=== PATIENT | female | born 1935 | race Caucasian/White ===

== ENCOUNTER 2016-08-09 13:31 | Observation (INO) | payer MEDICARE, BC ==
--- NOTE | ~2016-08-09 | DS ---
Unit #: [id number] #: [id number] Patient: MARS DAVENPORT [id number] [address] [place], [place] [address] [id number] I MR#: [id number] NAME: MARS DAVENPORT. ROOM: 337 Age: 80 Sex: F Admission Date: 08/09/2016 : 1935 Discharge Date: 08/12/2016 Attending Physician: Low Rodriguez M.D. Primary Care Physician: Low Rodriguez M.D. DISCHARGE SUMMARY PRINCIPAL DISCHARGE DIAGNOSES 1. Micturition syncope. 2. Rhabdomyolysis. 3. History of frequent premature ventricular complexes, symptomatic. 4. Hyperlipidemia, intolerant to treatment. 5. History of diverticulosis. 6. History of hiatal hernia and gastritis. 7. Hypertension. PROCEDURES None. CONSULTANTS Dr. Bal. REASON FOR HOSPITALIZATION The patient is an 80-year-old white female with history of hiatal hernia, gastritis, hypertension, hyperlipidemia, frequent PVCs and diverticulosis. She was having a large bowel movement when she became diaphoretic and lightheaded, passed out, complaining of neck and back pain, was sent to the emergency room per EMS. She essentially had a negative workup except her (1) CPK level was 1,962. She was seen by cardiology. Her Lopressor was decreased to a half twice a day. Orthostatic blood pressure and heart rate was ordered, and the patient was admitted. HOSPITAL COURSE The patient had a urinalysis for further evaluation of the rhabdomyolysis obviously looking for evidence of myoglobinuria. Her urinalysis was within normal limits. For whatever reason, a urine culture was sent and was negative. She was placed on IV fluids with sodium bicarb. Her CPK levels and electrolytes were followed. Labs in the ER showed a normal CBC. Random blood sugar was normal at 114. CMP was normal except for random blood sugar of 130 and an AST of 47, obviously related to the muscle injury. INR was within normal limits at 1. Cardiac enzymes were within normal limits except for the elevated CK-MB. Followup troponins were normal. Chest x-ray showed likely underlying chronic interstitial lung disease but no acute abnormalities. Two views of the pelvis showed no fracture or dislocation. Three views of the thoracic spine showed demineralized bone, exaggerated thoracic kyphosis but no acute fracture or misalignment. Lipid profile showed total cholesterol of 241, an LDL of 157, triglycerides of 95 and an HDL of 65. TSH was within normal limits. CPK fell as expected. This morning her CPK level is 300. Her potassium was low yesterday and replaced per protocol; it is currently 3.7. Magnesium is 1.8. The rest of her BMP is normal. Her CBC is normal this Unit #: [id number] #: [id number] Patient: MARS DAVENPORT A morning except for a hemoglobin of 10.5, which is probably secondary to dilution. She is currently asymptomatic and being discharged home. DISCHARGE MEDICATIONS 1. Metoprolol tartrate 25 mg 1/2 p.o. b.i.d. 2. Vitamin D 2,000 units p.o. daily. FOLLOW-UP She will follow up in the office in 1 week. Dictated by... Low Rodriguez M.D. CHRISTIE/eris TD: 08/13/2016 11:49 JOB #: [id number] DISCHARGE SUMMARY X Low Rodriguez MD X DISCHARGE SUMMARY
--- NOTE | ~2016-08-09 | CR206 ---
[facility] A Service of [facility] & [facility] RADIOLOGY TEXT RESULTS PATIENT: MARS DAVENPORT LOCATION: CEDOF 25060-11 : 33 UNIT #: [id number] AGE: [address]: Low Rodriguez MD SEX: F ORDER DR: [id number] [facility] [address] [place], [place] [address] [id number] MR#: [id number] Acc #: [id number] NAME: MARS DAVENPORT. : 1935 SEX: F STUDY DATE/TIME: 08/09/2016 12:25 UNIT: CEDOF ROOM: 25204 STUDY DESCRIPTION: CR Pelvis 1 or 2 Views Attending Physician: Low Rodriguez M.D. Ordering Physician: Aelxei Osorio M.D. Primary Care Physician: Low Rodriguez M.D. MEDICAL IMAGING REPORT This report is preliminary unless electronic signature is present EXAM Pelvis 1 or 2 views HISTORY Pain in the pelvic area, mid-back pain, syncope today. COMMENT Frontal view of the pelvis is reviewed. The bones are demineralized. No prior pelvic film. No acute fracture, dislocation, or radiopaque foreign body appreciated. Lower sacrum is obscured by overlying bowel gas. IMPRESSION Bones demineralized. No acute fracture dislocation appreciated pelvis. Lower sacrum is obscured by overlying bowel gas. Dictated by... Elis Reyna M.D. THIS IS AN ELECTRONICALLY VERIFIED REPORT Elis Reyna M.D. at 08/10/2016 6:20 AM JOLIE/reshma TD: 08/10/2016 03:54 JOB #: [id number] MEDICAL IMAGING REPORT COPY
--- NOTE | ~2016-08-09 | HP ---
Unit #: [id number] #: [id number] Patient: MARS DAVENPORT [id number] [facility]. [place], [place] [address] [id number] I MR#: [id number] NAME: MARS DAVENPORT. ROOM: 16532 Age: 80 Sex: F Admission Date: 08/09/2016 : 1935 Attending Physician: Low Rodriguez M.D. Primary Care Physician: Low Rodriguez M.D. HISTORY AND PHYSICAL Ms. Davenport is a 80-year-old female with a history of hiatal hernia, gastritis, hypertension, hyperlipidemia, frequent PVCs, chronic weakness likely (1) diverticulosis, was in her usual state of health yesterday when she was having a large bowel movement. Soon thereafter she became diaphoretic, lightheaded, and found herself on the floor complaining of neck pain and upper back pain. Had no chest pain, shortness of air, or any other symptoms. Has had no fever, cough, shortness of air, change in bowel or bladder habits of recent times. In the emergency room she was evaluated and essentially had a negative workup, although her total CPK was elevated to 1962 and was never notified of this until I found it in the computer this morning. In any case, she has been seen by cardiology (2) her blood pressure medications that she is on at home, which are Lopressor 25 mg b.i.d., which I have cutdown by half b.i.d. Her blood pressure was elevated most of the day yesterday but suddenly this morning it is 87/57, being addressed with IV fluids and holding her Lopressor. Currently she is lying in the emergency room on the stretcher in no acute distress. Daughter is at the bedside during the history and physical examination. ALLERGIES She has stated allergies to antihistamines, Zithromax, as well as codeine, epinephrine and Phenergan. MEDICATIONS PRIOR TO ADMISSION Metoprolol tartrate 25 mg b.i.d.; vitamin D 2,000 units daily. PAST SURGICAL HISTORY The patient has had a femoral artery repaired, cardiac cath, tubal ligation, tonsillectomy. PAST MEDICAL HISTORY Frequent PVCs, hypertension, hyperlipidemia, hiatal hernia, gastritis, diverticulosis. She had a prior negative Cardiolite 11/29/2012. Echo 11/29/2012 showed a normal EF with mild mitral regurgitation and aortic insufficiency. SOCIAL HISTORY She is , nonsmoker, and nondrinker. No street drug use. FAMILY HISTORY Noncontributory. PHYSICAL EXAMINATION Unit #: [id number] #: [id number] Patient: MARS DAVENPORT GENERAL: She is awake, alert and oriented x3 in no acute distress. VITAL SIGNS: Afebrile, pulse 99, respirations 16, blood pressure 87/57, O2 sats 99% on room air. HEENT: Unremarkable. NECK: Supple without JVD, bruits, adenopathy, or thyromegaly. CHEST: Clear to auscultation. HEART: Regular rate and rhythm without any murmurs, rubs or gallops. ABDOMEN: Soft, nondistended and nontender with positive bowel sounds and no hepatosplenomegaly. EXTREMITIES: No clubbing, cyanosis or edema. /RECTAL: Deferred. NEUROLOGIC: Grossly intact. DIAGNOSTIC STUDIES LAB VALUES: CBC normal x2. CMV normal except for a random blood sugar of 130 and an AST of 47. PT INR is 1.0, CK-MB was 70.2, troponin normal x3, CK total 1962. Total cholesterol 241, LDL 157, TSH within normal limits. IMAGING STUDIES: CT scan of the head - no active disease. CT scan of the C-spine - no active disease. Chest x-ray - no active disease. Chronic interstitial lung disease. Pelvis - osteopenia, no fracture or dislocation. T-spine - osteopenia, kyphosis, no fracture or misalignment. CARDIOLOGY STUDIES: EKG - sinus rhythm, first degree AV block, right bundle branch block. IMPRESSION 1. Micturition syncope. 2. Rhabdomyolysis. 3. Hypotension. 4. History of hypertension. 5. History of frequent PVCs. 6. History of hiatal hernia and gastritis. 7. History of diverticular disease. 8. Hyperlipidemia, intolerant of treatment of the past. PLAN Urinalysis to check for blood and other etiologies. Repeat CPK now and in the morning. Hold Lopressor for systolics less than 100. Again cardiology has been consulted and already seen the patient. She will be started on IV fluids with half normal saline with 1 1/2 amps of sodium bicarb at 150 mL an hour, watching closely for volume overload and repeated her CPK in the morning. Dictated by Charlotte Lance/jud TD: 08/10/2016 11:00 JOB #: [id number] Unit #: [id number] #: [id number] Patient: MARS DAVENPORT A HISTORY AND PHYSICAL X oLw Rodriguez MD X HISTORY AND PHYSICAL
--- NOTE | ~2016-08-09 | EKG ---
PATIENT: MARS DAVENPORT UNIT #: [id number] Ventricular Rate: 90 BPM Atrial Rate: 90 BPM P-R Interval: 212 ms QRS Duration: 114 ms Q-T Interval: 392 ms QTC Calculation(Bezet): 479 ms P [place]: 39 degrees Calculated R [place]: -28 degrees Calculated T [place]: 1 degrees Diagnosis Line: Sinus rhythm with 1st degree A-V block Diagnosis Line: Right bundle branch block Diagnosis Line: Abnormal ECG Diagnosis Line: When compared with ECG of 06-NOV-2015 12:30, Diagnosis Line: ST now depressed in Anterolateral leads Diagnosis Line: T wave inversion now evident in Anterior leads Diagnosis Line: Confirmed by HENRIQUE WEBB MD ([id number]) on Diagnosis Line: 08/12/2016 4:00:28 PM INTERPRETING MD: JON NAJERA
--- NOTE | ~2016-08-09 | CR72 ---
[facility] A Service of [facility] & [facility] RADIOLOGY TEXT RESULTS PATIENT: MARS DAVENPORT LOCATION: CEDOF [address]6769-53 : 33 UNIT #: [id number] AGE: [address]: Low Rodriguez MD SEX: F ORDER DR: [id number] [facility] [address] [place], [place] [address] [id number] I MR#: [id number] Acc #: [id number] NAME: MARS DAVENPORT. : 1935 SEX: F STUDY DATE/TIME: 08/09/2016 12:20 UNIT: CEDOF ROOM: 77603 STUDY DESCRIPTION: CR Chest Single View Portable Attending Physician: Low Rodriguez M.D. Ordering Physician: Alexei Osorio M.D. Primary Care Physician: Low Rodriguez M.D. MEDICAL IMAGING REPORT This report is preliminary unless electronic signature is present EXAM Chest x-ray portable HISTORY Syncope, pain in pelvic area mid back pain, syncope starting today. History of mitral valve prolapse and cardiac cath. COMMENTS Single frontal portable view of the chest timed 12:20 08/09/2016 reviewed. Comparison 11/06/2015. There is top normal heart size. There is underlying chronic interstitial lung disease. There is no acute infiltrate acute congestive failure, pleural effusion or pneumothorax suspected. Calcification noted at the aortic knob. IMPRESSION 1. Likely underlying chronic interstitial lung disease but no acute abnormality is appreciated. Dictated by... Elis Reyna M.D. THIS IS AN ELECTRONICALLY VERIFIED REPORT Elis Reyna M.D. at 08/10/2016 6:20 AM JOLIE/reshma TD: 08/10/2016 03:51 JOB #: [id number] MEDICAL IMAGING REPORT COPY
--- NOTE | ~2016-08-09 | CT71 ---
[facility] A Service [facility] [place] [place]IOLOGY TEXT RESULTS PATIENT: MARS DAVENPORT LOCATION: CEDOF : 33 UNIT #: [id number] AGE: [address]: Low Rodriguez MD SEX: F ORDER DR: [id number] [facility] [address] [place], [place] [address] [id number] I MR#: [id number] Acc #: [id number] NAME: MARS DAVENPORT. : 1935 SEX: F STUDY DATE/TIME: 08/09/2016 12:44 UNIT: CEDOF ROOM: 96568 STUDY DESCRIPTION: CT Head Wo Contrast Attending Physician: Low Rodriguez M.D. Ordering Physician: Alexei Osorio M.D. Primary Care Physician: Low Rodriguez M.D. MEDICAL IMAGING REPORT This report is preliminary unless electronic signature is present EXAM CT brain without contrast HISTORY Syncope today. TECHNIQUE This CT exam was performed with one or more of the following radiation dose reduction techniques: automatic control, adjustment of mA and/or kV according to patient size, and iterative reconstruction. FINDINGS CT brain without contrast demonstrates no intracranial hemorrhage, mass or edema. No midline shift or ventricular dilatation. No extraaxial fluid collection. Mild chronic ischemic changes in the periventricular white matter bilaterally. IMPRESSION No acute findings. Minimal chronic ischemic changes in the deep white matter bilaterally. Dictated by... Chucho Reynolds M.D. THIS IS AN ELECTRONICALLY VERIFIED REPORT Chucho Reynolds M.D. at 08/10/2016 1:52 PM DFL/rnr TD: 08/10/2016 04:28 JOB #: [id number] MEDICAL IMAGING REPORT [facility] A [facility] RADIOLOGY TEXT RESULTS PATIENT: MARS DAVENPORT LOCATION: CEDOF : 33 UNIT #: [id number] AGE: [address]: Low Rodriguez MD SEX: F ORDER DR: COPY
--- NOTE | ~2016-08-09 | CR243 ---
[facility] A Service of [facility] & [facility] RADIOLOGY TEXT RESULTS PATIENT: MARS DAVENPORT LOCATION: CEDOF [address]-72 : 33 UNIT #: [id number] AGE: [address]: Low Rodriguez MD SEX: F ORDER DR: [id number] [facility] [address] [place], [place] [address] [id number] I MR#: [id number] Acc #: [id number] NAME: MARS DAVENPORT. : 1935 SEX: F STUDY DATE/TIME: 08/09/2016 12:27 UNIT: CEDOF ROOM: 70676 STUDY DESCRIPTION: CR Thoracic Spine 3 Views Attending Physician: Low Rodriguez M.D. Ordering Physician: Alexei Osorio M.D. Primary Care Physician: Low Rodriguez M.D. MEDICAL IMAGING REPORT This report is preliminary unless electronic signature is present EXAM Thoracic spine series HISTORY Pain in mid back syncope today. COMMENT AP lateral and swimmers views of the thoracic spine are reviewed. There is a two-view chest for comparison from 2011. The bones are demineralized. There is dextroconvex scoliosis seen in the upper lumbar spine. There is exaggeration of thoracic kyphosis. Mild multiple level anterior endplate spondylosis. No acute fracture or destructive process is suspected. Partly seen are cervical degenerative changes. IMPRESSION Bones are demineralized and there is mild exaggeration of thoracic kyphosis with some anterior endplate spondylosis but there is no acute fracture or traumatic malalignment suspected. Partly seen is dextroconvex upper lumbar scoliosis and degenerative change in the cervical spine. Dictated by... Elis Reyna M.D. THIS IS AN ELECTRONICALLY VERIFIED REPORT Elis Reyna M.D. at 08/10/2016 6:20 AM JOLIE/rnmary TD: 08/10/2016 03:59 JOB #: [id number] MEDICAL IMAGING REPORT COPY
--- NOTE | ~2016-08-09 | CT52 ---
[facility] A Service of [facility] RADIOLOGY TEXT RESULTS PATIENT: MARS DAVENPORT LOCATION: CED [address]-77 : 33 UNIT #: [id number] AGE: [address]: Low Rodriguez MD SEX: F ORDER DR: [id number] [facility] [address] [place], [place] [address] [id number] I MR#: [id number] Acc #: [id number] NAME: MARS DAVENPORT. : 1935 SEX: F STUDY DATE/TIME: 08/09/2016 12:46 UNIT: CEDOF ROOM: 21677 STUDY DESCRIPTION: CT Cervical Spine Wo Cont Attending Physician: Low Rodriguez M.D. Ordering Physician: Alexei Osorio M.D. Primary Care Physician: Low Rodriguez M.D. MEDICAL IMAGING REPORT This report is preliminary unless electronic signature is present EXAM CT cervical spine without contrast HISTORY Neck pain today after syncope and fall. TECHNIQUE This CT exam was performed with one or more of the following radiation dose reduction techniques: automatic control, adjustment of mA and/or kV according to patient size, and iterative reconstruction. FINDINGS CT cervical spine without contrast demonstrates moderate degenerative disc space narrowing at C5-C6 and C6-C7 with associated moderate sized broad-based marginal osteophytes, and moderately severe left-sided bony outlet foraminal narrowing primarily secondary to uncovertebral and facet hypertrophy at C5-C6 and C6-C7. Additional degenerative changes at C1-C2. 3 mm anterior subluxation of C7 on T1, likely on a degenerative basis with associated degenerative facet arthropathy. No fracture. No precervical soft tissue swelling. IMPRESSION 1. No acute findings. 2. Degenerative and hypertrophic changes at C5-C6 and C6-C7 causing moderately severe left-sided bony outlet foraminal narrowing at these levels. 3. Minimal anterior subluxation of C7 on T1 is likely on a degenerative basis with associated degenerative facet arthropathy. Dictated by... Chucho Reynolds M.D. [facility] A Service of [facility] RADIOLOGY TEXT RESULTS PATIENT: MARS DAVENPORT LOCATION: [facility] [address]-17 : 33 UNIT #: [id number] AGE: [address]: Low Rodriguez MD SEX: F ORDER DR: THIS IS AN ELECTRONICALLY VERIFIED REPORT hCucho Reynolds M.D. at 08/10/2016 1:52 PM DFL/reshma TD: 08/10/2016 04:29 JOB #: [id number] MEDICAL IMAGING REPORT COPY
--- NOTE | ~2016-08-09 | CO ---
Unit #: [id number] #: [id number] Patient: MARS DAVENPORT [id number] [facility] [address] [place], [place] [address] [id number] MR#: [id number] NAME: MARS DAVENPORT. ROOM: 337 Age: 80 Sex: F Admission Date: 08/09/2016 : 1935 Attending Physician: Low Rodriguez M.D. Primary Care Physician: Low Rodriguez M.D. Consultation Date: 08/09/2016 CONSULTATION REPORT JOB NOTE: CC: PRIMARY CARE PHYSICIAN AND [facility] C[facility] REASON FOR CONSULT Syncope. HISTORY OF PRESENT ILLNESS This is an 80-year-old white female, known to [facility], with a past medical history of chronic lightheadedness and PVCs with palpitations. The patient had a full workup in 11/2012 for lightheadedness and palpitations. 2D echocardiogram revealed a left ventricular ejection fraction of 50% to 55% with mild tricuspid, mitral and aortic regurgitation. The patient reports of mitral valve prolapse, but there are no details of this available. She underwent a 24-hour Holter monitor on 11/30/2012, which revealed sinus rhythm with frequent PVCs and some bigeminy. Exercise Cardiolite stress test on 11/29/2012 revealed no ischemia. Additional past medical history includes hypertension, hyperlipidemia, GERD, and diverticular disease. The patient presented to the hospital with complaints of syncope. She states that she woke up around 8:00 in the morning and was in the kitchen, she felt the urge of a bowel movement and she walked to the bathroom. She sat on the commode and the next thing she remembers is waking up on the floor. She did lose consciousness, but states that she felt like it was briefly. There was no acute injury, but currently on exam, she does complain of some neck pain. She denies hitting her head. She does admit to precipitating symptoms of some dizziness. She states that she was dizzy while in the kitchen. She admits to frequent palpitations. She is on a beta-leyla at home and states that the palpitations improved after the doses taken. She denies chest pain. There is some shortness of breath with exertion. There are no reports of PND or orthopnea. She admits to some lower extremity edema, but there is none on exam currently. In the emergency department, labs were initially normal, except for mildly elevated AST of 47. Chemistry and renal function were normal. CBC was normal. Initial cardiac enzymes were negative. EKG revealed sinus rhythm with a first-degree AV block. She was given 500 normal saline bolus and 600 mg of Tylenol. She was admitted for syncope, and Cardiology was consulted. PAST MEDICAL HISTORY 1. 2D echocardiogram, 11/28/2012, revealed a left ventricular ejection fraction of 50% to 55%. Mild tricuspid, mitral and aortic regurgitation. 2. Reported mitral valve prolapse per the patient. 3. 24-hour Holter monitor, 11/30/2012, revealed sinus rhythm with Unit #: [id number] #: [id number] Patient: MARS DAVENPORT A frequent PVCs. Some bigeminy. 4. Exercise Cardiolite stress test, 11/29/2012, revealed no stress-induced ischemia. Ejection fraction of 74%. 5. Old right bundle-branch block. 6. History of chronic palpitations and dizziness. 7. Hypertension. 8. Hyperlipidemia. 9. GERD. 10. Diverticular disease. 11. Normal bilateral carotid Doppler, 11/2015. 12. Nonsmoker. PAST SURGICAL HISTORY 1. Tonsillectomy. 2. Tubal ligation. 3. EGD, 09/2014, revealed hiatal hernia and gastritis. 4. EGD, 06/2012, revealed grade 1 esophagitis, gastritis, Schatzki ring, and diverticulosis of the colon. HOME MEDICATIONS Metoprolol tartrate 25 mg p.o. daily, vitamin D 2000 units p.o. daily. ALLERGIES Antihistamines, calamine, ethylenediamine, piperidine, codeine, promethazine, adverse reaction to azithromycin and epinephrine, piperazine. SOCIAL HISTORY The patient lives in a private residence. She is a lifetime nonsmoker. There are no reports of alcohol or illicit drug use. FAMILY HISTORY Significant for cancer. REVIEW OF SYSTEMS 12-point review of systems negative except for details noted above in HPI. PHYSICAL EXAMINATION VITAL SIGNS: Temperature 97.4, pulse 76, blood pressure 162/62. CONSTITUTIONAL: This is an 80-year-old white female, in no acute distress. She is anxious. SKIN: Warm and dry. NECK: Supple. No jugular vein distention. No hepatojugular reflux. Normal carotid upstrokes. No carotid bruits auscultated. HEART: S1 and S2. Regular rate and rhythm. No murmurs, rubs, or gallops. LUNGS: Bilateral breath sounds have good air entry throughout all lung avery. Respirations even and nonlabored. No rales, rhonchi, or wheezes. ABDOMEN: Soft, nontender, and nondistended. Positive bowel sounds auscultated x4 quadrants. No ascites noted. EXTREMITIES: Bilateral lower extremities have no pretibial pitting edema. DP and PT pulses are 2+. Capillary refill is less than 2 seconds. DIAGNOSTIC STUDIES LABORATORY RESULTS: White blood cell count 10.3, hemoglobin 12.5, hematocrit 37.3, platelets 397. Sodium 136, potassium 3.6, chloride 106, CO2 of 25, BUN 14, creatinine 0.8, glucose 130, AST 47, ALT 20, alkaline phosphatase 78. INR 1.0. Troponin 0.05. Unit #: [id number] #: [id number] Patient: MARS DAVENPORT IMAGING STUDIES: Chest x-ray reveals no acute findings. CARDIOVASCULAR STUDIES: EKG reveals sinus rhythm with a ventricular rate of 90 beats per minute. First-degree AV block. Incomplete right bundle-branch block. QTc 479 milliseconds. IMPRESSION 1. Vasovagal syncope. 2. PVCs and PACs on Holter monitor, 11/2012. 3. Normal stress test, 2012. 4. Left ventricular ejection fraction of 50% to 55% with mild mitral, aortic and tricuspid regurgitation. 5. Hypertension. 6. Hyperlipidemia. 7. Diverticular disease. 8. Gastroesophageal reflux disease. PLAN 1. The patient presented to the hospital with complaints of syncope. She was admitted for further evaluation. Cardiology was consulted. 2. We will continue beta-blockers at a lower dose to prevent severe drop in heart rate and blood pressure during vagal episodes. 3. TSH and fasting lipid profile will be obtained. 4. Orthostatic vital signs have been ordered. 5. There are no complaints of chest pain or evidence of congestive heart failure on exam. 6. No further workup anticipated at this time. Dictated by... Lien Dacosta APRN for Jus Bal M.D. LOULOU/baylee TD: 08/11/2016 01:52 JOB #: [id number] CONSULTATION REPORT X X CONSULTATION REPORT
[2016-08-09 12:04] LABS: BASOPHIL% 0.3 % (0-2.5); EOSINOPHIL# 0.1 X10e3 (0-0.7); EOSINOPHIL% 0.5 % (0.0-7.0); HEMATOCRIT 37.3 % (35.0-45.0); HEMOGLOBIN 12.5 gm/dL (12.0-16.0); LYMPHOCYTE# 0.9 X10e3 (1.0-3.5); LYMPHOCYTE% 8.4 % (17.0-45.0); MEAN CELL VOLUME 89.5 FL (83-96); MEAN CORPUSCULAR HEMOGLOBIN 29.9 PG (28-34); MEAN CORPUSCULAR HGB CONC 33.5 g/dL (30-36); MONOCYTE# 0.3 X10e3 (0-1.0); MONOCYTE% 3.3 % (3.0-12.0); NEUTROPHIL% 87.5 % (40-75); PLATELET COUNT 397 X10e3 (140-420); RED BLOOD COUNT 4.17 X10e (3.90-5.30); RED CELL DISTRIBUTION WIDTH 13.6 % (11.0-15.5); WHITE BLOOD COUNT 10.3 X10e3 (4.0-10.5)
[2016-08-09 12:09] LABS: DIFF IND NO
[2016-08-09 12:18] LABS: PROTHROMBIN TIME (PATIENT) 10.7 SECONDS (9.6-11.5)
[2016-08-09 12:26] LABS: ALKALINE PHOSPHATASE 78 U/L (32-92); ALT (SGPT) 20 U/L (10-40); AST (SGOT) 47 U/L (10-42); BILIRUBIN, DIRECT <0.1 mg/dL (0.0-0.2); BILIRUBIN,INDIRECT 0.3 mg/dL (0.0-0.9); BILIRUBIN,TOTAL 0.4 mg/dL (0.2-2.0); BLOOD UREA NITROGEN 14 mg/dL (9-23); CALCIUM SERUM 9.5 mg/dL (8.4-10.2); CARBON DIOXIDE 25 mmol/L (22-31); CHLORIDE 106 mmol/L (100-111); CREATININE SERUM 0.8 mg/dL (0.6-1.4); GLOM FILT RATE Estimated ABOVE60 mL/min (>60); GLUCOSE FASTING 130 mg/dL (70-110); POTASSIUM 3.6 mmol/L (3.5-5.1); PROTEIN TOTAL SERUM 7.8 g/dL (6.0-8.3); SODIUM 136 mmol/L (135-145)
[~2016-08-09 13:31] MED LIST: ACETAMINOPHEN PO; ACETAMINOPHEN650 M4 PO; ACIPHEX20 MG PO; ASPIRIN PO; ATENOLOL PO; ATENOLOL25 MG PO; AVELOX400 M1 PO; CELEBREX PO; CIPRO PO; COLACE PO; LIPITOR40 MG PO; LISINOPRIL20 MG PO; METOPROLOL SUCC25 MG PO; METOPROLOL SUCC50 MG PO; METOPROLOL TART25 MG PO; MULTI-DAY VITAM1 TAB PO; PHENERGAN12.5 MG PO; PREMARIN VAG CR45 GM MC; PROTONIX PO; SIMVASTATIN20 MG PO; SIMVASTATIN40 MG PO; SIMVASTATIN80 MG PO; ST JOSEPH ASPIR81 MG PO; TUMS500 M1 PO; [UNRECOGNIZED DRUG - OTHER] PO
[2016-08-09] MEDS ORDERED: METOPROLOL TART25 MG PO (14:11)
[2016-08-09] MEDS ORDERED: VITAMIN D2000 UNIT PO (14:11)
[2016-08-09 14:41] LABS: POC - CKMB 70.2 ng/mL (0.0-7.9); POC - TROPONIN <0.05 ng/mL (<=0.05)
[2016-08-09 18:33] LABS: MB 98.8 ng/ml
[2016-08-10 00:58] LABS: %MB 3.2 % (0.0-4.0); MB 57.9 ng/ml
[2016-08-10 07:38] LABS: HEMATOCRIT 35.6 % (35.0-45.0); MEAN CELL VOLUME 88.2 FL (83-96); MEAN CORPUSCULAR HEMOGLOBIN 29.8 PG (28-34); MEAN CORPUSCULAR HGB CONC 33.8 g/dL (30-36); RED BLOOD COUNT 4.04 X10e (3.90-5.30); RED CELL DISTRIBUTION WIDTH 13.8 % (11.0-15.5); WHITE BLOOD COUNT 6.9 X10e3 (4.0-10.5)
[2016-08-10 08:05] LABS: BLOOD UREA NITROGEN 11 mg/dL (9-23); BUN/CREATININE RATIO 15.71; CALCIUM SERUM 9.1 mg/dL (8.4-10.2); CARBON DIOXIDE 26 mmol/L (22-31); CHLORIDE 106 mmol/L (100-111); CREATININE SERUM 0.7 mg/dL (0.6-1.4); GLOM FILT RATE Estimated ABOVE60 mL/min (>60); GLUCOSE FASTING 92 mg/dL (70-110); POTASSIUM 3.5 mmol/L (3.5-5.1); SODIUM 136 mmol/L (135-145)
[2016-08-10 08:30] LABS: CHOLESTEROL 241 mg/dL (0-200); HDL CHOLESTEROL 65 mg/dL (35-95); LDL/HDL RATIO 2 RATIO (0-4); TRIGLYCERIDES 95 mg/dL (10-160)
[2016-08-10 08:33] LABS: LDL CHOLESTEROL 157 mg/dL (-130)
[2016-08-10 12:36] LABS: URINE APPEARANCE CLEAR; URINE BILIRUBIN NEG (NEG); URINE BLOOD NEG (NEG); URINE COLOR YELLOW; URINE GLUCOSE NEG (NEG); URINE KETONE TRACE (NEG); URINE LEUKOCYTE ESTERASE TRACE (NEG); URINE NITRATE NEG (NEG); URINE PH 7.5 (5-8); URINE PROTEIN NEG (NEG); URINE SPECIFIC GRAVITY 1.007 (1.003-1.035); URINE UROBILINOGEN 0.2 MG/DL (NEG)
[2016-08-10 12:41] LABS: URBCS1 AUWI 0-2 /[HPF] (0-2); URINE BACTERIA AUWI NEG (NEGATIVE); URINE SQUAMOUS EPITHELIAL CELL NONE SEEN /[HPF]; UWBCS1 AUWI 0-2 (0-5)
[2016-08-11 09:45] LABS: BLOOD UREA NITROGEN 11 mg/dL (9-23); BUN/CREATININE RATIO 15.71; CALCIUM SERUM 8.7 mg/dL (8.4-10.2); CARBON DIOXIDE 29 mmol/L (22-31); CHLORIDE 103 mmol/L (100-111); CPK (CREATINE PHOSPHOKINASE) 660 IU/L (26-140); CREATININE SERUM 0.7 mg/dL (0.6-1.4); GLOM FILT RATE Estimated ABOVE60 mL/min (>60); GLUCOSE FASTING 132 mg/dL (70-110); MAGNESIUM 1.7 mg/dL (1.6-3.0); SODIUM 139 mmol/L (135-145)
[2016-08-12 05:49] LABS: HEMATOCRIT 31.7 % (35.0-45.0); HEMOGLOBIN 10.5 gm/dL (12.0-16.0); MEAN CORPUSCULAR HEMOGLOBIN 29.5 PG (28-34); MEAN CORPUSCULAR HGB CONC 33.1 g/dL (30-36); MEAN PLATELET VOLUME 7.1 FL (6.5-11.5); RED BLOOD COUNT 3.56 X10e (3.90-5.30); RED CELL DISTRIBUTION WIDTH 13.6 % (11.0-15.5); WHITE BLOOD COUNT 5.7 X10e3 (4.0-10.5)
[2016-08-12 06:42] LABS: BLOOD UREA NITROGEN 10 mg/dL (9-23); BUN/CREATININE RATIO 14.28; CALCIUM SERUM 8.7 mg/dL (8.4-10.2); CARBON DIOXIDE 28 mmol/L (22-31); CHLORIDE 105 mmol/L (100-111); CPK (CREATINE PHOSPHOKINASE) 300 IU/L (26-140); CREATININE SERUM 0.7 mg/dL (0.6-1.4); GLOM FILT RATE Estimated ABOVE60 mL/min (>60); GLUCOSE FASTING 83 mg/dL (70-110); MAGNESIUM 1.8 mg/dL (1.6-3.0); POTASSIUM 3.7 mmol/L (3.5-5.1); SODIUM 140 mmol/L (135-145)
== END 2016-08-12 09:12 | disposition home or self-care (01) ==
LOC: CED 13:31 → CEDOF 13:45 → C3A PCU 08-10 16:29
PROVIDERS: Emergency Medicine; Internal Medicine; Internal Medicine Cardiovascular Disease
DX: R55 Syncope and collapse (principal); M62.82 Rhabdomyolysis; E78.5 Hyperlipidemia, unspecified; I10 Essential (primary) hypertension; I95.9 Hypotension, unspecified; K57.90 Diverticulosis of intestine, part unspecified, without perforation or abscess without bleeding; Z23 Encounter for immunization; Z86.79 Personal history of other diseases of the circulatory system; Z87.19 Personal history of other diseases of the digestive system; Z88.5 Allergy status to narcotic agent; Z88.1 Allergy status to other antibiotic agents; Z88.8 Allergy status to other drugs, medicaments and biological substances; Z80.9 Family history of malignant neoplasm, unspecified
CPT/HCPCS: 36415; 70450; 71010; 72072; 72125; 72170; 80048; 80061; 80076; 81003; 82550; 82553; 82947; 83735; 84443; 84484; 85025; 85027; 85610; 87086; 90688; 93005; 96360; 96361; 96372; 99285; G0008; G0378; J1650